=== PATIENT | female | born 1980 | race American Indian/Alaskan Native ===

== ENCOUNTER 2021-04-26 18:40 | Emergency (ER) | payer SELFPAY ==
[2021-04-27] MEDS ORDERED: ACETAMINOPHEN 500 MG TAB PO ONE ×2 (00:14→10:52)
--- NOTE | 2021-04-27 00:37 | XRay Report ---
XR chest routine 2V INDICATION / CLINICAL INFORMATION: fever, pain with deep breath. COMPARISON: None available. FINDINGS: SUPPORT DEVICES: None. HEART /PULMONARY VASCULATURE: No significant abnormality. LUNGS / PLEURA: No significant pulmonary or pleural abnormality. No pneumothorax. ADDITIONAL FINDINGS: No significant additional findings. IMPRESSION: 1. No acute findings. Signer Name: Ford Plata MD Signed: 04/27/2021 12:32 AM Workstation Name: [id number]
[2021-04-27] MEDS ORDERED: SODIUM CHLORIDE 0.9% 1000 ML 1,000 ML IV ONE ×4 (02:01→06:10)
--- NOTE | 2021-04-27 02:12 | Emergency Department Report ---
HPI <DIEGO LANDRY - Last Filed: 04/27/21 11:39> - HPI HPI: 41-year-old female with history of hypertension who does not take her prescribed medications presents complaining of 4 days of URI symptoms and fevers. She says that beginning Sunday she began having fevers for which she has been taking Ty lenol. She is having body aches, cough, nausea but no vomiting. She has greatly decreased appetite and feels generally weak. She also reports right- sided pleuritic chest pain on inhalation. She has no chest pain or shortness of breath now. Her LMP was Sunday. She is vaccinated against Covid but has not received a booster. She denies any associated headache, vision change, neck pain/stiffness, back pain, abdominal pain, vomiting, dysuria, discharge, vaginal bleeding, focal weakness, sensory changes, or any other complaints. <JULIENNE MEJIA - Last Filed: 04/29/21 15:33> - General Chief Complaint: Fever Time Seen by Provider: 04/27/21 01:52 ED Past Medical Hx <DIEGO LANDRY - Last Filed: 04/27/21 11:39> - Past Medical History Previous Medical History?: Yes Hx Hypertension: Yes Additional medical history: pneumonia - Surgical History Past Surgical History?: Yes Additional Surgical History: tubal <JULIENNE MEJIA - Last Filed: 04/29/21 15:33> - Medications Home Medications: Home Medications Medication Instructions Recorded Confirmed Last Taken Type Acetaminophen [Non-Aspirin Extra 1,000 mg PO Q4H PRN 04/27/21 04/27/21 04/26/21 History Strength] Nitrofurantoin [place]/M-Cryst 100 mg PO Q12HR #14 capsule 04/27/21 Unknown Rx [Macrobid CAP] Ondansetron [Zofran Odt] 4 mg PO Q8HR PRN #14 tab.rapdis 04/27/21 Unknown Rx traMADoL [Ultram 50 MG tab] 50 mg PO Q4HR PRN #14 tablet 04/27/21 Unknown Rx ED Review of Systems ROS: Stated complaint: FEVER x3 DAYS Other details as noted in HPI <DIEGO LANDRY - Last Filed: 04/27/21 11:39> ROS: Stated complaint: FEVER x3 DAYS Other details as noted in HPI Comment: All other systems reviewed and negative Constitutional: chills, fever, malaise Eyes: denies: eye pain, vision change ENT: denies: throat pain, congestion Respiratory: cough. denies: shortness of breath Cardiovascular: chest pain (Right sided, pleuritic). denies: palpitations, edema, syncope Gastrointestinal: nausea. denies: abdominal pain, vomiting Genitourinary: denies: dysuria, frequency, discharge Musculoskeletal: denies: back pain, arthralgia Skin: denies: rash, lesions Neurological: denies: headache, weakness, numbness, confusion <JULIENNE MEJIA - Last Filed: 04/29/21 15:33> Physical Exam - Physical Exam Vital Signs: Vital Signs 04/27/21 04/27/21 04/27/21 00:11 04:27 04:41 Temperature 103.0 F H 100 F H Pulse Rate 152 H 114 H Respiratory 18 16 Rate Blood Pressure 165/106 142/95 [Left] O2 Sat by Pulse 97 99 98 Oximetry <DIEGO LANDRY - Last Filed: 04/27/21 11:39> - Physical Exam Vital Signs: Vital Signs 04/27/21 00:11 Temperature 103.0 F H Pulse Rate 152 H Respiratory 18 Rate Blood Pressure 165/106 [Left] O2 Sat by Pulse 97 Oximetry Physical Exam: GENERAL: Well developed and well nourished. No acute distress HEAD: Normocephalic. No obvious signs of trauma. ENT: Extremely dry mucous membranes. Posterior pharynx is grossly within normal limits. EYES: Extraocular movements are intact. Pupils are equal round and reactive to light bilaterally NECK: Supple. Full ROM is intact. Trachea is midline. LUNGS: Nonlabored breathing. Equal chest rise bilaterally. Coarse breath sounds bilaterally. Otherwise clear. CARDIOVASCULAR: Tachycardic but with regular rhythm. No murmurs or rubs. VASCULAR: Cap refill < 2 seconds. Trace pitting edema bilaterally ABDOMEN: Abdomen is soft and nondistended. There is no significant tenderness, guarding or rebound. SKIN: Skin is warm and dry NEURO: Patient is awake, alert, and oriented. posting specialist II-XII grossly intact. No focal deficits. Normal motor and sensory exam throughout. Normal speech. MUSCULOSKELETAL: No obvious deformities. No significant tenderness. Normal ROM throughout. BACK/SPINE: No midline tenderness or step-offs of the C/T/L spine. No costovertebral angle tenderness. <JULIENNE MEJIA - Last Filed: 04/29/21 15:33> ED Course Vital Signs 04/27/21 04/27/21 04/27/21 00:11 04:27 04:41 Temperature 103.0 F H 100 F H Pulse Rate 152 H 114 H Respiratory 18 16 Rate Blood Pressure 165/106 142/95 [Left] O2 Sat by Pulse 97 99 98 Oximetry <DIEGO LANDRY - Last Filed: 04/27/21 11:39> Vital Signs 04/27/21 00:11 Temperature 103.0 F H Pulse Rate 152 H Respiratory 18 Rate Blood Pressure 165/106 [Left] O2 Sat by Pulse 97 Oximetry <JULIENNE MEJIA - Last Filed: 04/29/21 15:33> ED Medical Decision Making - Lab Data Result diagrams: 04/27/21 02:13 04/27/21 02:13 - Medical Decision Making Patient received Toradol 30 mg IV for pain. Patient stated that she is feeling much better. Labs reviewed and showed leukocytosis. CT chest showed pyelonephritis. Patient received cefepime. Patient received 3 L of normal saline. Patient stated that she is feeling much better and she wanted to go home. I strongly advised patient to follow-up with her primary care physician. I started patient on Macrobid twice a day for 7 days. Patient also received prescription for tramadol and Zofran. Patient advised to return to the ER if he develop any new symptoms. <DIEGO LANDRY - Last Filed: 04/27/21 11:39> - Lab Data Result diagrams: 04/27/21 02:13 04/27/21 02:13 - EKG Data -: EKG Interpreted by [facility] - EKG Data 04/27/21 07:59 Sinus tachycardia. Normal axis. Normal intervals. LVH changes. No ectopy. No significant ST segment or T wave abnormalities. 04/27/21 08:00 - Radiology Data Radiology results: report reviewed - Medical Decision Making 41-year-old female with history of hypertension noncompliant with medications presenting with 4 days of URI symptoms including fever/chills, cough, body aches, nausea without vomiting, decreased appetite, and right sided pleuritic chest pain. She denies any mid substernal chest pain or chest pain or shortness of breath. On initial assessment she is noted to be febrile with a temp of 103.0. She is tachycardic in the 150s. She is hypertensive with a blood pressure of 165/106. She has normal oxygen saturation. On physical examination she has very dry mucous membranes. She is tachycardic but with regular rhythm. Lung auscultation reveals coarse breath sounds which are otherwise clear. She has no abdominal or CVA tenderness. She has a nonfocal neurologic exam. We will perform broad work-up with sepsis order set to include labs and cultures, EKG, chest x-ray, and CTA of the chest to assess for evidence of PE given patient with symptoms which could represent Covid and pleuritic right-sided chest pain. We will give Tylenol and 2 L of IV fluids for now. Chest x-ray reveals no acute abnormalities Labs reveal leukocytosis of 14.6 with no significant anemia. Kidney function is normal but there is hyponatremia with sodium of 132 and hypokalemia with potassium of 3.2 and acidosis with bicarb of 18. We will replete the patient's potassium. Urinalysis is consistent with UTI. Given that the patient presented with high fever, significant tachycardia and rigors, I have ordered IV cefepime which is broad-spectrum. On repeat assessment at 4:31 AM, the patient remains tachycardic in the 120s. I have added an additional 1 L of IV fluids. CTA of the chest reveals no evidence of PE and no other acute findings in the chest but there are findings consistent with right-sided pyelonephritis. We will continue to assess the patient after IV fluids to determine the appropriate disposition. Case has been signed out to Dr. Landry at 7:30 AM who will assume care <JULIENNE MEJIA - Last Filed: 04/29/21 15:33> Critical care attestation.: If time is entered above; I have spent that time in minutes in the direct care of this critically ill patient, excluding procedure time. <DIEGO LANDRY - Last Filed: 04/27/21 11:39> Critical care attestation.: If time is entered above; I have spent that time in minutes in the direct care of this critically ill patient, excluding procedure time. <JULIENNE MEJIA - Last Filed: 04/29/21 15:33> ED Disposition Is pt being admited?: No <DIEGO LANDRY - Last Filed: 04/27/21 11:39> <JULIENNE MEJIA - Last Filed: 04/29/21 15:33> Clinical Impression: Pyelonephritis of right kidney, Hypokalemia Disposition: 01 HOME / SELF CARE / HOMELESS Condition: Stable Instructions: Pyelonephritis, Adult, [id number] Prescriptions: Nitrofurantoin [place]/M-Cryst [Macrobid CAP] 100 mg PO Q12HR #14 capsule traMADoL [Ultram 50 MG tab] 50 mg PO Q4HR PRN #14 tablet PRN Reason: Pain Ondansetron [Zofran Odt] 4 mg PO Q8HR PRN #14 tab.rapdis PRN Reason: Nausea And Vomiting Referrals: PRIMARY CARE,MD [Primary Care Provider] - 3-5 Days
[2021-04-27 02:45] LABS: Hematocrit 34.8 % (30.3-42.9); Hemoglobin 11.4 gm/dl (10.1-14.3); Mean Corpuscular HGB Conc 33 % (30-34); Mean Corpuscular Volume 91 fl (79-97); Platelet Count 245 K/mm3 (140-440); Red Blood Count 3.84 M/mm3 (3.65-5.03); Red Cell Distribution Width 13.9 % (13.2-15.2)
[2021-04-27 02:57] LABS: INR 1.09 (0.87-1.13)
[2021-04-27 03:07] LABS: Alanine Aminotransferase 16 units/L (7-56); Albumin 3.9 g/dL (3.9-5); Bilirubin,Direct 0.4 mg/dL (0-0.2); Blood Urea Nitrogen 9 mg/dL (7-17); Hemolysis Index 0
[2021-04-27 03:10] LABS: BUN/Creatinine Ratio 15
[2021-04-27 04:09] LABS: Bacteria,Urine 1+ /HPF (Negative); Bilirubin,Urine NEG (Negative); Blood,Urine MOD (Negative); Color,Urine Amber (Yellow); Hyaline Casts,Urine 2 /LPF; Mucus,Urine 1+ /HPF
[2021-04-27] MEDS ORDERED: POTASSIUM CHLORIDE ER 20 MEQ TAB PO ONE (04:11)
[2021-04-27] MEDS ORDERED: CEFEPIME/NS 2 GM/100 ML 2 GM/100 ML BAG IV ONE (04:12)
[2021-04-27 04:14] LABS: Protein,Urine >500 mg/dL (Negative)
--- NOTE | 2021-04-27 04:16 | Cat Scan Report ---
CT angio chest INDICATION / CLINICAL INFORMATION: RIGHT sided pleuritic chest pain x 4 days. TECHNIQUE: Axial CT images were obtained through the chest after injection of 100 cc of Omnipaque 350 IV contrast. 3 plane MIP and/or 3D reconstructions were produced. All CT scans at this location are performed using CT dose reduction for ALARA by means of automated exposure control. COMPARISON: Same-day chest radiograph FINDINGS: PULMONARY ARTERIES: No central or segmental pulmonary embolus. THORACIC AORTA: No significant abnormality. HEART: No significant abnormality. LYMPHADENOPATHY: No significant thoracic lymphadenopathy. LUNGS/PLEURA: No acute airspace disease. No pleural effusion or pneumothorax. OTHER FINDINGS: None. UPPER ABDOMEN: There is asymmetric inflammatory stranding of the right kidney with areas of cortical hypoenhancement. There is also mild urothelial thickening of the proximal right renal collecting syst em. No other acute abnormality of the upper abdomen. SKELETAL SYSTEM: No acute osseous findings. IMPRESSION: 1. Marked asymmetric perinephric stranding of the right kidney with patchy areas of cortical hypoenha ncement and mild urothelial thickening of the partially imaged proximal right renal collecting system . Findings are consistent with acute pyelonephritis. 2. No acute findings in the chest. No evidence of pulmonary embolism. Signer Name: Ford Plata MD Signed: 04/27/2021 4:11 AM Workstation Name: [id number]
[2021-04-27 04:23] LABS: Basophils % (Manual) 0 % (0.0-1.8); Eosinophils % (Manual) 0 % (0.0-4.3); Total Cells Counted 100
[2021-04-27 04:24] LABS: Platelet Estimate Consistent w Auto; RBC Morphology Normal
[2021-04-27] MEDS ORDERED: IBUPROFEN 600 MG TAB PO ONE (06:10)
[2021-04-27] MEDS ORDERED: KETOROLAC 30 MG/1 ML INJ IV ONE (09:33)
--- NOTE | 2021-04-27 11:48 | Electrocardiograph Report ---
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
[2021-04-27 11:56] VITALS: BP 132/67
== END 2021-04-27 11:56 | disposition home or self-care (01) ==
LOC: ED 18:40
DX: N10 Acute pyelonephritis (principal); E87.6 Hypokalemia; I10 Essential (primary) hypertension
CPT/HCPCS: 36415; 71046; 71275; 80048; 80076; 81001; 82140; 83690; 83735; 83880; 84484; 84703; 85007; 85025; 85610; 85730; 87040; 87086; 93005; 93010; 96361; 96365; 96375; 99285; J0692; J1885; J7030; Q9967; Q0162

== ENCOUNTER 2021-07-13 11:32 | Outpatient (CLI) | payer BC ==
[2021-07-13 12:20] LABS: Hepatitis C Virus Antibody Non-Reactive (NonReactive)
== END 2021-07-13 11:33 | disposition home or self-care (01) ==
LOC: LAB 11:32
PROVIDERS: ATTEND Student in an Organized Health Care Education/Training Program
DX: Z11.3 Encounter for screening for infections with a predominantly sexual mode of transmission (principal)
CPT/HCPCS: 36415; 86592; 86706; 86803; 87806